=== PATIENT | female | born 2000 | race Caucasian/White ===

== ENCOUNTER → 2019-09-19 | Outpatient (CLI) | payer BC ==
[~2019-09-19] MED LIST: GADOTERATE 5 MMOL/10ML VIAL. IVP ONE; IOHEXOL 300 MG/ML 50 ML VIAL. IJ ONE
--- NOTE | 2019-09-19 17:00 | RAD ---
EXAM: Fluoroscopically guided left glenohumeral injection for MR arthrography. HISTORY: Sharp stabbing pain in the superior left shoulder. Left shoulder pain from injury.. TECHNIQUE: The risks and benefits of the procedure were discussed with the patient and written and verbal consent were obtained. A time out procedure was performed. Fluoroscopic imaging of the left shoulder was performed. The overlying skin was sterilely prepped and infiltrated with 1% lidocaine for local anesthesia. A 22-gauge spinal needle was then advanced into the joint space under fluoroscopic guidance. Intra-articular positioning positioning was confirmed with a small injection of iodinated contrast. 12 mL of 1:200 dilution gadolinium contrast with saline and iodinated contrast was injected under fluoroscopic control. Instrumentation was withdrawn and a sterile dressing placed. There were no immediate complications. The patient was transferred to the MR suite for additional imaging. Fluoroscopy time 0.9 minutes. 7 images were obtained. Refer to the MR report for additional detail. IMPRESSION: Successful fluoroscopically guided left glenohumeral joint injection for MR arthrography. Please refer to the separate MR report for additional detail. PROCEDURE: MRI Left Shoulder Arthrogram INDICATION: Reason: LEFT SHOULDER PAIN AFTER FALL, 0.7ML DOTAREM MIXED WITH OMNIPAQUE SOLUTION / Spl. Instructions: / History: . TECHNIQUE: Multiplanar, multisequence MRI of the left shoulder with intra-articular contrast. Injection reported separately. COMPARISON: Left glenohumeral joint injection for MR arthrography. FINDINGS: OSSEOUS: Reactive marrow edema is associated with a small impaction fracture of the posterior superior left humeral head, compatible with an acute to subacute Hill-Sachs fracture. Marrow signal is otherwise unremarkable. SUPRASPINATUS TENDON: Unremarkable. INFRASPINATUS TENDON: Unremarkable. SUBSCAPULAR TENDON: Unremarkable. TERES MINOR TENDON: Unremarkable. ROTATOR CUFF MUSCLES: No significant rotator cuff muscle edema or atrophy. LONG HEAD BICEPS TENDON: Tendon is unremarkable and well positioned in the intertubercular groove with normal insertion upon the glenoid labrum. GLENOID LABRUM: Anterior inferior labral tear from approximately 9:00 position to the 6:00 position. No significant paralabral cyst. GLENOID JOINT: Unremarkable. No significant joint effusion. ACROMIOCLAVICULAR JOINT: Unremarkable. DELTOID MUSCLE: Unremarkable. OTHER: No soft tissue mass or fluid collection. IMPRESSION: 1. Acute impaction fracture of the posterior superior humeral head compatible with a Hill-Sachs fracture. 2. Soft tissue Bankart lesion involving an anterior inferior glenoid labral tear from the 9 to 6:00 position. Electronically signed by: Sharmila Guerra MD (09/19/2019 4:57 PM) [id number]
== END | disposition home or self-care (01) ==
LOC: RAD 12:44
PROVIDERS: ATTEND Physician Assistant
DX: M25.512 Pain in left shoulder (principal); M25.812 Other specified joint disorders, left shoulder
CPT/HCPCS: 73040; 73222

== ENCOUNTER 2020-01-08 20:52 | Emergency (ER) | payer BC ==
[~2020-01-08] VITALS: Ht 167.6 cm; Wt 45.8 kg
[2020-01-08 21:36] LABS: BILIRUBIN,URINE NEGATIVE (NEG); CLARITY,URINE CLEAR; COLOR,URINE AMBER; NITRITE,URINE NEGATIVE (NEG); PROTEIN,URINE 30 mg/dL (NEG-TRACE)
[2020-01-08 21:44] LABS: BACTERIA,URINE FEW /HPF (0-FEW); RBC,URINE 0 /HPF (0-2)
[2020-01-08 21:56] LABS: BASO % 0 % (0-3); EOS # 0.1 x10^3/uL (0.0-0.7); EOS % 2 % (0-3); HEMATOCRIT 40.7 % (36.0-47.0); HEMOGLOBIN 14.2 g/dL (12.0-15.5); LYMPH # 0.3 x10^3/uL (1.0-4.8); LYMPH % 4 % (24-48); MEAN CORPUSCULAR HEMOGLOBIN 31 pg (25-35); MEAN CORPUSCULAR HGB CONC 35 g/dL (31-37); MEAN CORPUSCULAR VOLUME 88 fL (79-100); MONO # 0.4 x10^3/uL (0.0-1.1); MONO % 6 % (0-9); NEUT # 5.8 x10^3/uL (1.8-7.7); NEUT % 88 % (31-73); PLATELET COUNT 195 x10^3/uL (140-400); RED BLOOD COUNT 4.63 x10^6/uL (3.50-5.40); RED CELL DISTRIBUTION WIDTH 12.7 % (11.5-14.5); WHITE BLOOD COUNT 6.6 x10^3/uL (4.0-11.0)
[2020-01-08] MEDS ORDERED: IV NORMAL SALINE 1000ML BAG 1,000 ML IV ONE (22:00)
[2020-01-08] MEDS ORDERED: ACETAMINOPHEN 500 MG TABLET PO ONE (22:00)
[2020-01-08] MEDS ORDERED: MORPHINE SULFATE 4 MG/ML VIAL. IV ONE (22:00)
[2020-01-08 22:04] LABS: CREATININE 1.2 mg/dL (0.6-1.0); GFR 57.3; POTASSIUM 4.1 mmol/L (3.5-5.1)
[2020-01-08 22:10] LABS: ALBUMIN 3.9 g/dL (3.4-5.0); ALBUMIN/GLOBULIN RATIO 1.1 (1.0-1.7); TOTAL BILIRUBIN 0.5 mg/dL (0.2-1.0); TOTAL PROTEIN 7.5 g/dL (6.4-8.2)
[2020-01-08 22:36] LABS: % BANDS 6 % (0-9); % EOS 1 % (0-5); % LYMPHS 4 % (24-48); % MONOS 2 % (0-10); % SEGS 87 % (35-66); PLT ESTIMATE ADEQUATE (ADEQUATE); TOXIC GRANULATION SLIGHT
[2020-01-08] MEDS ORDERED: CONTRAST GIVEN. MC PRN (22:45)
[2020-01-08] MEDS ORDERED: IOHEXOL 300 MG/ML 100ML VIAL. IV ONE (23:00)
--- NOTE | 2020-01-08 23:00 | PHYS DOC ---
Past Medical History Past Medical History: UTI Past Surgical History: Other Additional Past Surgical Histo: L SHOULDER 10/2019 Smoking Status: Never Smoker Alcohol Use: None General Adult EDM: Chief Complaint: ABDOMINAL PAIN HPI: HPI: Patient is a 19 year old female who presented for evaluation of right side abdominal pain for about 5 days. Patient was seen at another ER, diagnosed with UTI. Patient was put on antibiotic. Patient had finished the antibiotic but still had pain so she came in for evaluation. Patient denies any cough, no chest pain, no trouble breathing. Review of Systems: Review of Systems: Constitutional: Denies fever or chills. [] Eyes: Denies change in visual acuity. [] HENT: Denies nasal congestion or sore throat. [] Respiratory: Denies cough or shortness of breath. [] Cardiovascular: Denies chest pain or edema. [] GI: Positive for abdominal pain, no nausea vomiting, no diarrhea. : Denies dysuria. [] Musculoskeletal: Denies back pain or joint pain. [] Integument: Denies rash. [] Neurologic: Denies headache, focal weakness or sensory changes. [] Endocrine: Denies polyuria or polydipsia. [] Lymphatic: Denies swollen glands. [] Psychiatric: Denies depression or anxiety. [] Heart Score: Risk Factors: Risk Factors: DM, Current or recent (<one month) smoker, HTN, HLP, family history of CAD, obesity. Risk Scores: Score 0 - 3: 2.5% MACE over next 6 weeks - Discharge Home Score 4 - 6: 20.3% MACE over next 6 weeks - Admit for Clinical Observation Score 7 - 10: 72.7% MACE over next 6 weeks - Early Invasive Strategies Current Medications: Current Medications Medications (Trade) Dose Ordered Sig/Porfirio Start Time Stop Time Status Last Admin Dose Admin Acetaminophen (Tylenol) 1,000 mg 1X ONCE 01/08/20 22:00 01/08/20 22:01 DC 01/08/20 21:58 1,000 MG Info (CONTRAST GIVEN -- Rx MONITORING) 1 each PRN DAILY PRN 01/08/20 22:45 01/10/20 22:44 Iohexol (Omnipaque 300 Mg/ml) 60 ml 1X ONCE 01/08/20 23:00 01/08/20 23:01 01/08/20 22:56 60 ML Morphine Sulfate (Morphine Sulfate) 4 mg 1X ONCE 01/08/20 22:00 01/08/20 22:01 DC 01/08/20 21:58 4 MG Sodium Chloride 1,000 ml @ 1,000 mls/hr 1X ONCE 01/08/20 22:00 01/08/20 22:59 DC 01/08/20 21:54 1,000 MLS/HR Allergies: Allergies: Allergies Coded Allergies Type Severity Reaction Last Updated Verified Penicillins Allergy Mild 09/19/19 Yes amoxicillin Allergy Mild 09/19/19 Yes egg Allergy Mild 09/19/19 Yes Physical Exam: PE: Constitutional: Well developed, well nourished, no acute distress, non-toxic appearance. [] HENT: Normocephalic, atraumatic, bilateral external ears normal, oropharynx moist, no oral exudates, nose normal. [] Eyes: PERRLA, EOMI, conjunctiva normal, no discharge. [] Neck: Normal range of motion, no tenderness, supple, no stridor. [] Cardiovascular:Heart rate regular rhythm, no murmur [] Lungs & Thorax: Bilateral breath sounds clear to auscultation [] Abdomen: Bowel sounds normal, soft, there is right side abdominal pain, no rebound, no guarding. Skin: Warm, dry, no erythema, no rash. [] Back: No tenderness, no CVA tenderness. [] Extremities: No tenderness, no cyanosis, no clubbing, ROM intact, no edema. [] Neurologic: Alert and oriented X 3, normal motor function, normal sensory function, no focal deficits noted. [] Psychologic: Affect normal, judgement normal, mood normal. [] Current Patient Data: Labs: Laboratory Tests Test 01/08/20 21:10 01/08/20 21:21 01/08/20 21:45 Urine Collection Type Unknown Urine Color Ирина Urine Clarity Clear Urine pH 6.0 (<5.0-8.0) Urine Specific Weed >=1.030 (1.000-1.030) Urine Protein 30 mg/dL (NEG-TRACE) Urine Glucose (UA) Negative mg/dL (NEG) Urine Ketones (Stick) Negative mg/dL (NEG) Urine Blood Negative (NEG) Urine Nitrite Negative (NEG) Urine Bilirubin Negative (NEG) Urine Urobilinogen Dipstick 1.0 mg/dL (0.2 mg/dL) Urine Leukocyte Esterase Negative (NEG) Urine RBC 0 /HPF (0-2) Urine WBC 1-4 /HPF (0-4) Urine Squamous Epithelial Cells Many /LPF Urine Bacteria Few /HPF (0-FEW) Urine Mucus Marked /LPF POC Urine HCG, Qualitative Hcg negative (Negative) White Blood Count 6.6 x10^3/uL (4.0-11.0) Red Blood Count 4.63 x10^6/uL (3.50-5.40) Hemoglobin 14.2 g/dL (12.0-15.5) Hematocrit 40.7 % (36.0-47.0) Mean Corpuscular Volume 88 fL (79-100) Mean Corpuscular Hemoglobin 31 pg (25-35) Mean Corpuscular Hemoglobin Concent 35 g/dL (31-37) Red Cell Distribution Width 12.7 % (11.5-14.5) Platelet Count 195 x10^3/uL (140-400) Neutrophils (%) (Auto) 88 % (31-73) H Lymphocytes (%) (Auto) 4 % (24-48) L Monocytes (%) (Auto) 6 % (0-9) Eosinophils (%) (Auto) 2 % (0-3) Basophils (%) (Auto) 0 % (0-3) Neutrophils # (Auto) 5.8 x10^3/uL (1.8-7.7) Lymphocytes # (Auto) 0.3 x10^3/uL (1.0-4.8) L Monocytes # (Auto) 0.4 x10^3/uL (0.0-1.1) Eosinophils # (Auto) 0.1 x10^3/uL (0.0-0.7) Basophils # (Auto) 0.0 x10^3/uL (0.0-0.2) Segmented Neutrophils % 87 % (35-66) H Band Neutrophils % 6 % (0-9) Lymphocytes % 4 % (24-48) L Monocytes % 2 % (0-10) Eosinophils % 1 % (0-5) Toxic Granulation Slight Platelet Estimate Adequate (ADEQUATE) Sodium Level 136 mmol/L (136-145) Potassium Level 4.1 mmol/L (3.5-5.1) Chloride Level 101 mmol/L (98-107) Carbon Dioxide Level 24 mmol/L (21-32) Anion Gap 11 (6-14) Blood Urea Nitrogen 6 mg/dL (7-20) L Creatinine 1.2 mg/dL (0.6-1.0) H Estimated GFR (Cockcroft-Gault) 57.3 BUN/Creatinine Ratio 5 (6-20) L Glucose Level 111 mg/dL (70-99) H Calcium Level 9.0 mg/dL (8.5-10.1) Total Bilirubin 0.5 mg/dL (0.2-1.0) Aspartate Amino Transferase (AST) 14 U/L (15-37) L Alanine Aminotransferase (ALT) 21 U/L (14-59) Alkaline Phosphatase 54 U/L (46-116) Total Protein 7.5 g/dL (6.4-8.2) Albumin 3.9 g/dL (3.4-5.0) Albumin/Globulin Ratio 1.1 (1.0-1.7) Lipase 58 U/L (73-393) L Laboratory Tests 01/08/20 21:45 Laboratory Tests 01/08/20 21:45 Vital Signs: Vital Signs Date Time Temp Pulse Resp B/P (MAP) Pulse Ox O2 Delivery O2 Flow Rate FiO2 01/08/20 21:58 99 Room Air 01/08/20 21:48 100.9 113 20 148/82 (104) 100.9 EKG: EKG: [] Radiology/Procedures: Radiology/Procedures: [facility] [address] [place], [place] [id number] IMAGING REPORT Signed PATIENT: HARINI ROLAND ACCOUNT: [id number] : 2000 LOCATION: ER AGE: 19 SEX: F EXAM STATUS: REG ER ORD. PHYSICIAN: SHREE MACIEL DO REASON: RIGHT SIDE ABDOMINAL PAIN, FEVER PROCEDURE: CT ABD PELV W/ IV CONTRST ONLY Exam: CT abdomen/pelvis with intravenous contrast Indication: Right-sided abdominal pain, fever Comparison: None Technique: Helical CT imaging performed of the abdomen and pelvis after the intravenous administration of 60 mL Omnipaque 300 intravenous contrast. Sagittal and coronal reformats were obtained. One or more of the following individualized dose reduction techniques were utilized for this examination: 1. Automated exposure control 2. Adjustment of the mA and/or kV according to patient size 3. Use of iterative reconstruction technique. Findings: Lower chest: Lung bases are clear. Heart is normal in size. Liver: The liver is normal in size. No focal lesion. Gallbladder/Biliary Tree: Normal. Pancreas: Normal. Spleen: Spleen is mildly enlarged measuring 14 cm in length. Adrenal Glands: Normal. Kidneys/Ureters/Bladder: Kidneys are normal in size and enhance symmetrically. No hydronephrosis. Ureters and bladder are normal. Reproductive Organs: Uterus and ovaries are normal. Stomach, small bowel, and colon: The stomach, small bowel, and colon are normal. The appendix is normal (image [id number] series 2). Vasculature: Normal. Lymph Nodes: There are prominent mesenteric lymph nodes in the right lower quadrant. Peritoneum and retroperitoneum: No free fluid or free air. Bones: There is slight rightward curvature of the lumbar spine. Impression: 1. Normal appendix. 2. Prominent mesenteric lymph nodes in the right lower quadrant. This is nonspecific but can be seen with mesenteric adenitis. 3. Mild splenomegaly. Electronically signed by: Karishma Smallwood MD (01/08/2020 11:21 PM) [id number] DICTATED and SIGNED BY: KARISHMA SMALLWOOD MD DATE: 01/08/202320 Course & Med Decision Making: Course & Med Decision Making Pertinent Labs and Imaging studies reviewed. (See chart for details) Patient is a 19-year-old female with right abdominal pain, CT abdomen pelvis showed normal appendix, normal gallbladder, lab work was normal. Patient will be discharged home. Seeonic Disclaimer: Seeonic Disclaimer: This electronic medical record was generated, in whole or in part, using a voice recognition dictation system. Departure Departure Impression: Primary Impression: Abdominal pain Disposition: 01 DC HOME SELF CARE/HOMELESS Condition: STABLE Referrals: NO PCP (PCP) PLEASE FOLLOW UP WITH YOUR DOCTOR THIS WEEK NEED Patient Instructions: Abdominal Pain Additional Instructions: Thank you for visiting our Emergency Department. We appreciate you trusting us with your care. If any additional problems come up don't hesitate to return to visit us. Please follow up with your primary care provider so they can plan additional care if needed and know about the problem that you had. If symptoms worsen come back to the Emergency Department. Any concerning symptoms that start such as chest pain, shortness of air, weakness or numbness on one side of the body, running high fevers or any other concerning symptoms return to the ER. SHREE MACIEL DO Jan 08, 2020 22:59
--- NOTE | 2020-01-08 23:23 | RAD ---
Exam: CT abdomen/pelvis with intravenous contrast Indication: Right-sided abdominal pain, fever Comparison: None Technique: Helical CT imaging performed of the abdomen and pelvis after the intravenous administration of 60 mL Omnipaque 300 intravenous contrast. Sagittal and coronal reformats were obtained. One or more of the following individualized dose reduction techniques were utilized for this examination: 1. Automated exposure control 2. Adjustment of the mA and/or kV according to patient size 3. Use of iterative reconstruction technique. Findings: Lower chest: Lung bases are clear. Heart is normal in size. Liver: The liver is normal in size. No focal lesion. Gallbladder/Biliary Tree: Normal. Pancreas: Normal. Spleen: Spleen is mildly enlarged measuring 14 cm in length. Adrenal Glands: Normal. Kidneys/Ureters/Bladder: Kidneys are normal in size and enhance symmetrically. No hydronephrosis. Ureters and bladder are normal. Reproductive Organs: Uterus and ovaries are normal. Stomach, small bowel, and colon: The stomach, small bowel, and colon are normal. The appendix is normal (image [id number] series 2). Vasculature: Normal. Lymph Nodes: There are prominent mesenteric lymph nodes in the right lower quadrant. Peritoneum and retroperitoneum: No free fluid or free air. Bones: There is slight rightward curvature of the lumbar spine. Impression: 1. Normal appendix. 2. Prominent mesenteric lymph nodes in the right lower quadrant. This is nonspecific but can be seen with mesenteric adenitis. 3. Mild splenomegaly. Electronically signed by: Karishma Smallwood MD (01/08/2020 11:21 PM) [id number]
[2020-01-09 00:07] VITALS: BP 116/65
== END 2020-01-09 00:07 | disposition home or self-care (01) ==
LOC: ER 20:52
DX: R10.11 Right upper quadrant pain (principal); Z87.440 Personal history of urinary (tract) infections; Z88.0 Allergy status to penicillin; Z88.1 Allergy status to other antibiotic agents; Z91.012 Allergy to eggs
CPT/HCPCS: 36415; 74177; 80053; 81001; 81025; 83690; 85007; 85025; 96361; 96374; 99285; J2270; J7030; Q9967; 99284-25

== ENCOUNTER 2021-02-02 00:43 | Emergency (ER) | payer BC ==
[~2021-02-02] VITALS: Ht 170.2 cm; Wt 81.8 kg
[2021-02-02 00:57] VITALS: BP 147/87
[2021-02-02] MEDS ORDERED: ACETAMINOPHEN 500 MG TABLET PO ONE (01:15)
--- NOTE | 2021-02-02 01:43 | PHYS DOC ---
Past Medical History Past Medical History: UTI Past Surgical History: Tonsillectomy, Other Additional Past Surgical Histo: L SHOULDER 10/2019 Smoking Status: Never Smoker Alcohol Use: None General Adult EDM: Chief Complaint: ANKLE PROBLEM HPI: HPI: Patient is a 20 year old [f__sex] who presents with [] Review of Systems: Review of Systems: Constitutional: Denies fever or chills Eyes: Denies redness or eye pain HENT: Denies nasal congestion or sore throat Respiratory: Denies cough or shortness of breath Cardiovascular: Denies chest pain or palpitations GI: Denies abdominal pain, nausea, or vomiting : Denies dysuria or hematuria Musculoskeletal: Denies back pain or joint pain Integument: Denies rash or skin lesions Neurologic: Denies headache, focal weakness or sensory changes Complete systems were reviewed and found to be within normal limits, except as documented in this note. Heart Score: C/O Chest Pain: N/A Current Medications: Current Medications Medications (Trade) Dose Ordered Sig/Porfirio Start Time Stop Time Status Last Admin Dose Admin Acetaminophen (Tylenol) 500 mg 1X ONCE 02/02/21 01:15 02/02/21 01:16 DC 02/02/21 01:13 500 MG Allergies: Allergies: Allergies Coded Allergies Type Severity Reaction Last Updated Verified Penicillins Allergy Mild 09/19/19 Yes amoxicillin Allergy Mild 09/19/19 Yes egg Allergy Mild 09/19/19 Yes Physical Exam: PE: Constitutional: Well developed, well nourished, no acute distress, non-toxic appearance HENT: Normocephalic, atraumatic Eyes: PERRL, EOMI, conjunctiva normal, no discharge Neck: Normal range of motion, no tenderness, supple Lungs & Thorax: No respiratory distress, equal chest rise and fall Abdomen: Soft, no tenderness Skin: Warm, dry, no erythema, no rash Back: No tenderness, no CVA tenderness Extremities: No tenderness, ROM intact, no edema Neurologic: Alert and oriented X 3, normal motor function, normal sensory function, no focal deficits noted Psychologic: Affect normal, judgment normal Current Patient Data: Vital Signs: Vital Signs Date Time Temp Pulse Resp B/P (MAP) Pulse Ox O2 Delivery O2 Flow Rate FiO2 02/02/21 00:57 98.2 89 18 147/87 (107) 100 Room Air 98.2 EKG: EKG: [] Radiology/Procedures: Radiology/Procedures: [] Course & Med Decision Making: Course & Med Decision Making Pertinent Imaging studies reviewed. (See chart for details) Patient stable for discharge with outpatient follow-up with PCP. Discussed findings and plan with patient, who acknowledges understanding and agreement. Kalpesh Disclaimer: Kalpesh Disclaimer: This electronic medical record was generated, in whole or in part, using a voice recognition dictation system. Splinting Splinting : Location: Right ankle Pre-Made Type: aircast Pre-Proc Neuro Vasc Exam: normal Post-Proc Neuro Vasc Exam: normal, unchanged from pre-exam Departure Departure Impression: Primary Impression: Right ankle sprain Qualified Codes: S93.401A - Sprain of unspecified ligament of right ankle, initial encounter Disposition: HOME / SELF CARE / HOMELESS Condition: STABLE Referrals: NO PCP (PCP) LAURIE SLOAN DPM Patient Instructions: Ankle Sprain, [id number], Crutch Use, [id number], Elastic Bandage and RICE Additional Instructions: Ice area of discomfort 20 minutes on then leave off next 20 minutes. Repeat several times daily for the next 2 days. Use [id number] ibuprofen and or Tylenol for pain or discomfort. JASBIR HAWLEY DO Feb 02, 2021 01:43
--- NOTE | 2021-02-02 02:02 | RAD ---
RIGHT ANKLE AP, LATERAL, OBLIQUE Clinical Indication: Reason: pain/swelling to lateral aspect after twisting ankle / Spl. Instructions : / History: Comparison: None. Findings: There is no acute fracture or dislocation. Mineralization is normal. The ankle mortise is intact. The re is mild lateral ankle soft tissue swelling. There is no obvious joint effusion. No radiopaque fore ign body. IMPRESSION: No acute fracture. Electronically signed by: Da Acharya MD (02/02/2021 1:59 AM) [facility]
== END 2021-02-02 01:10 | disposition home or self-care (01) ==
LOC: ER 00:43
DX: S93.401A Sprain of unspecified ligament of right ankle, initial encounter (principal); Z88.0 Allergy status to penicillin; Z88.1 Allergy status to other antibiotic agents; Z91.012 Allergy to eggs; X50.9XXA Other and unspecified overexertion or strenuous movements or postures, initial encounter; Y93.89 Activity, other specified; Y92.89 Other specified places as the place of occurrence of the external cause; Y99.8 Other external cause status
CPT/HCPCS: 29515; 73610; 99283